=== PATIENT | female | born 2000 | race Caucasian/White ===

== ENCOUNTER → 2022-12-02 11:32 | Outpatient (BNVA) | payer MEDICAID, SELFPAY | PROVIDERS: PCP Family Medicine; Visit Provider Family Medicine | DX: D64.9 Anemia, unspecified (principal); Z00.00 Encounter for general adult medical examination without abnormal findings; Z98.84 Bariatric surgery status | CPT/HCPCS: 80053; 82607; 83735; 85025; 87624 ==